=== PATIENT | male | born 1990 | race Caucasian/White ===

== ENCOUNTER 2016-07-26 17:56 | Emergency (ER) | payer OTHER ==
--- NOTE | 2016-07-26 19:09 | REP ---
Clinical: Trauma. Technique: AP and axial views of the left clavicle. Findings: A transverse mid clavicular shaft fracture is appreciated with mild inferior angulation to the distal fracture component. The acromioclavicular and glenohumeral joints appear intact. Overlying soft tissues appear grossly unremarkable. Impression: Mid clavicular shaft fracture. Signed by Skip De Leon MD 07/26/2016 07:01 P
[2016-07-26] MEDS ORDERED: NORCO 5/325MG TABLET (BULK) As Ordered ONE (20:20)
--- NOTE | 2016-07-26 20:27 | EDDOCDS ---
Nurse's Notes [facility] Name: Nicanor Teague Age: 25 yrs Sex: Male : 1990 Arrival Date: 07/26/2016 Time: 17:56 Bed Triage 3 Private MD: NDPHILLIP POE Diagnosis: Nondisplaced fracture of shaft of left clavicle Presentation: 07/26 18:02 Presenting complaint: Patient states: snowboarding and got cut off- fell landing on srm left shoulder- having clavicle pain. Presenting complaint: Patient states: did not hit head no LOCa. Adult Sepsis Screening: The patient does not have new or worsening altered mentation. Patient's respiratory rate is less than 22. Systolic blood pressure is greater than 100. Patient has a qSOFA score of 0- Negative Sepsis Screen. Suicide/Homicide risk assessment- the patient denies having any suicidal and/or homicidal ideations and does not present with any other emotional, behavioral or mental health complaints. Status: The patient is an active duty battery service technician. Transition of care: patient was not received from another setting of care. 18:02 Acuity: NOEL Level 4 [facility] 18:02 Method Of Arrival: Walkin/Carried/Asstd [facility] Triage Assessment: 18:05 General: Appears in no apparent distress, Behavior is appropriate for age, cooperative. srm Pain: Pain currently is 7 out of 10 on a pain scale. At worst was 10 out of 10 on a pain scale. 18:06 Pt Declines HIV testing. srm Historical: - Allergies: no known allergies; - Home Meds: 1. none - PMHx: Seasonal Allergies; - PSHx: bilatral wrist surgery; - Social history: Smoking status: Patient uses tobacco products, current every day smoker. No barriers to communication noted, The patient speaks fluent Indonesian, Speaks appropriately for age. - Family history: Not pertinent. - : The pt / caregiver states he / she is not on anticoagulants. Home medication list is obtained from the patient. - Exposure Risk Screening:: None identified. Screenin:23 Screening information is obtained from the patient. Fall risk: No risks identified. jmb Assistance ADL's: requires no assistance with activities of daily living. Abuse/DV Screen: The patient / caregiver reports he/she is: not in a situation that causes fear, pain or injury. Nutritional screening: No deficits noted. Advance Directives: Currently, there is no health care proxy. There is no active DNR order. There is no living will. There is no Power of Master Brewer. home support is adequate. Assessment: 20:23 General: Patient instructed on discharge instructions. Patient asked if there were any jmb questions regarding discharge, patient stated no. Patient signed discharge instructions. Patient discharged in stable condition. . Vital Signs: 17:57 BP 142 / 77; Pulse 83; Resp 18 S; Temp 99.0; Pulse Ox 99% on R/A; Weight 79.38 kg (R); dd6 Height 6 ft. 0 in. (182.88 cm) (R); 20:23 BP 138 / 70; Pulse 80; Resp 18; Temp 98.8(O); Pulse Ox 99% on R/A; Pain 0/10; jmb 17:57 Body Mass Index 23.73 (79.38 kg, 182.88 cm) dd6 Vitals: 17:57 Log In Time: July 26, 2016 at 17:55. dd6 ED Course: 17:57 Patient visited by Yrn Ramirez PCA. dd6 17:57 [facility], PHILLIP AVILA is Private Physician. dd6 17:57 Patient moved to Waiting dd6 17:58 Patient moved to Pre RCE dd6 18:04 Triage Initiated srm 19:28 Patient moved to Triage 3 jmb 20:01 Patient visited by Dilma Ross PCA. jb5 20:03 Kenney Chidlers PA is PHCP. mo1 20:03 Allen Mojica DO is Attending Physician. mo1 20:04 Clavicle Returned. EDMS 20:19 Patient visited by Kenney Childers PA. mo1 20:20 Gold Brownlee is Referral Physician. mo1 20:20 Albino Wiggins is Referral Physician. mo1 20:23 The patient / caregiver is instructed regarding the plan of care and ED course. jmb 20:23 No IV's were initiated during this patient's visit. No procedures done that require jmb assistance. Administered Medications: 20:21 Drug: HYDROcodone-acetaminophen 4 pack- 1 packets [hydrocodone 5 mg-acetaminophen 325 jmb mg tablet (1 tabs)] {Co-Signature: mcp (Carmel Banks RN).} Route: PO; Order Results: Radiology Order: Clavicle Test: Clavicle REASON FOR EXAMINATION: Trauma; Clinical: Trauma.; ; Technique: AP and axial views of the left clavicle.; ; Findings:; A transverse mid clavicular shaft fracture is appreciated with mild inferior; angulation to the distal fracture component. The acromioclavicular and; glenohumeral joints appear intact. Overlying soft tissues appear grossly; unremarkable.; ; Impression:; Mid clavicular shaft fracture.; ; ; Signed by; Skip De Leon MD 07/26/2016 07:01 P; Outcome: 20:20 Discharge ordered by Provider. mo1 20:23 Discharge Assessment: Patient awake, alert and oriented x 3. No cognitive and/or jmb functional deficits noted. Patient verbalized understanding of disposition instructions. Patient awake and alert. obeys commands, Oriented to person, place and time. Patient verbalized understanding of disposition instructions. Patient has no functional deficits. patient administered narcotics - no. The following High Risk Discharge criteria are identified: None. Discharged to home ambulatory. Condition: stable Condition: improved. Discharge instructions given to patient, Instructed on discharge instructions, follow up and referral plans. medication usage, Demonstrated understanding of instructions, medications, Pt was receptive of discharge instructions/ teaching. Prescriptions given X 1. No special radiology studies were completed. Property sent home with patient. 20:26 Patient left the ED. paul Signatures: Dispatcher [employer] EDMS Saray Reyes, RN RN Dilma Chavez, DYED YARN OPERATOR DYED YARN OPERATOR jb5 Yrn Ramirez, DYED YARN OPERATOR DYED YARN OPERATOR dd6 Kenney Childers PA PA mo1 Kee Gifford RN RN jmb Mary Peters RN mcp LYNDA
--- NOTE | 2016-07-26 20:27 | EDDOCDS ---
Physician Documentation [facility] Name: Nicanor Teague Age: 25 yrs Sex: Male : 1990 Arrival Date: 07/26/2016 Time: 17:56 Bed Triage 3 Private MD: PHILLIP AKINS Disposition: 07/26/16 20:20 Discharged to Home/Self Care. Impression: Nondisplaced fracture of shaft of left clavicle. - Condition is Stable. - Discharge Instructions: Clavicle Fracture, Arm Sling Use, [id number]. - Prescriptions for [place] 5- 325 mg Oral Tablet - take 1 tablet by ORAL route every 6 hours As needed MDD: 4 tabs; 20 tablet. - Medication Reconciliation, Local Pharmacy Hours form. - Follow up: Gold Brownlee; When: Call to arrange an appointment; Reason: Recheck today's complaints, Continuance of care. Follow up: Albino Wiggins; When: Call to arrange an appointment; Reason: Recheck today's complaints, Continuance of care. - Problem is new. - Symptoms are unchanged. Historical: - Allergies: no known allergies; - Home Meds: 1. none - PMHx: Seasonal Allergies; - PSHx: bilatral wrist surgery; - Social history: Smoking status: Patient uses tobacco products, current every day smoker. No barriers to communication noted, The patient speaks fluent Malian, Speaks appropriately for age. - Family history: Not pertinent. - : The pt / caregiver states he / she is not on anticoagulants. Home medication list is obtained from the patient. - Exposure Risk Screening:: None identified. Vital Signs: 07/26 17:57 BP 142 / 77; Pulse 83; Resp 18 S; Temp 99.0; Pulse Ox 99% on R/A; Weight 79.38 kg / 175 dd6 lbs (R); Height 6 ft. 0 in. (182.88 cm) (R); 20:23 BP 138 / 70; Pulse 80; Resp 18; Temp 98.8(O); Pulse Ox 99% on R/A; Pain 0/10; jmb 17:57 Body Mass Index 23.73 (79.38 kg, 182.88 cm) dd6 MDM: 18:08 Clavicle Ordered. EDMS 20:17 Sling ordered. mo1 20:17 HYDROcodone-acetaminophen 4 pack- 5 mg-325 mg 1 packets PO Per package directions; mo1 Dispense with patient. 1 po q4h prn for pain ordered. Administered Medications: 20:21 Drug: HYDROcodone-acetaminophen 4 pack- 1 packets [hydrocodone 5 mg-acetaminophen 325 jmb mg tablet (1 tabs)] {Co-Signature: mcp (Carmel Banks RN).} Route: PO; Signatures: Dispatcher [employer] Saray Awad, Kenney Dumont RN, PA PA mo1 Kee Gifford RN RN jmb Carmel Banks RN, mcp MTDD
--- NOTE | 2016-07-28 21:27 | EDDOCDS ---
Physician Documentation [facility] Name: Nicanor Teague Age: 25 yrs Sex: Male : 1990 Arrival Date: 07/26/2016 Time: 17:56 Bed Triage 3 Private MD: PHILLIP AKINS Disposition: 07/26/16 20:20 Discharged to Home/Self Care. Impression: Nondisplaced fracture of shaft of left clavicle. - Condition is Stable. - Discharge Instructions: Clavicle Fracture, Arm Sling Use, [id number]. - Prescriptions for [place] 5- 325 mg Oral Tablet - take 1 tablet by ORAL route every 6 hours As needed MDD: 4 tabs; 20 tablet. - Medication Reconciliation, Local Pharmacy Hours form. - Follow up: Gold Brownlee; When: Call to arrange an appointment; Reason: Recheck today's complaints, Continuance of care. Follow up: Albino Wiggins; When: Call to arrange an appointment; Reason: Recheck today's complaints, Continuance of care. - Problem is new. - Symptoms are unchanged. Historical: - Allergies: no known allergies; - Home Meds: 1. none - PMHx: Seasonal Allergies; - PSHx: bilatral wrist surgery; - Social history: Smoking status: Patient uses tobacco products, current every day smoker. No barriers to communication noted, The patient speaks fluent Belarusian, Speaks appropriately for age. - Family history: Not pertinent. - : The pt / caregiver states he / she is not on anticoagulants. Home medication list is obtained from the patient. - Exposure Risk Screening:: None identified. Vital Signs: 07/26 17:57 BP 142 / 77; Pulse 83; Resp 18 S; Temp 99.0; Pulse Ox 99% on R/A; Weight 79.38 kg / 175 dd6 lbs (R); Height 6 ft. 0 in. (182.88 cm) (R); 20:23 BP 138 / 70; Pulse 80; Resp 18; Temp 98.8(O); Pulse Ox 99% on R/A; Pain 0/10; jmb 17:57 Body Mass Index 23.73 (79.38 kg, 182.88 cm) dd6 MDM: 18:08 Clavicle Ordered. EDMS 20:17 Sling ordered. mo1 20:17 HYDROcodone-acetaminophen 4 pack- 5 mg-325 mg 1 packets PO Per package directions; mo1 Dispense with patient. 1 po q4h prn for pain ordered. 20:30 [facility] Payment Agreement was scanned into [employer] and attached to record. [facility] 20:30 Financial registration complete. [facility] 07/27 08:59 T-Sheet-- Draft Copy was scanned into [employer] and attached to record. gb Administered Medications: 07/26 20:21 Drug: HYDROcodone-acetaminophen 4 pack- 1 packets [hydrocodone 5 mg-acetaminophen 325 jmb mg tablet (1 tabs)] {Co-Signature: mcp (Carmel Banks RN).} Route: PO; Signatures: Dispatcher [employer] Saray Awad, Zari Harris RN, Ashok Reg gb Kenney Childers PA PA mo1 Kee Gifford RN RN jmb Beck, Gabriela gjb Mary Peters RN mcp The chart was reviewed and I authenticate all verbal orders and agree with the evaluation and treatment provided.Attachments: 20:30 [facility] Payment Agreement [facility] 07/27 08:59 T-Sheet-- Draft Copy gb Chart Complete MTDD
--- NOTE | 2016-07-28 21:27 | EDDOCDS ---
Nurse's Notes [facility] Name: Nicanor Teague Age: 25 yrs Sex: Male : 1990 Arrival Date: 07/26/2016 Time: 17:56 Bed Triage 3 Private MD: OKPHILLIP POE Diagnosis: Nondisplaced fracture of shaft of left clavicle Presentation: 07/26 18:02 Presenting complaint: Patient states: snowboarding and got cut off- fell landing on srm left shoulder- having clavicle pain. Presenting complaint: Patient states: did not hit head no LOCa. Adult Sepsis Screening: The patient does not have new or worsening altered mentation. Patient's respiratory rate is less than 22. Systolic blood pressure is greater than 100. Patient has a qSOFA score of 0- Negative Sepsis Screen. Suicide/Homicide risk assessment- the patient denies having any suicidal and/or homicidal ideations and does not present with any other emotional, behavioral or mental health complaints. Status: The patient is an active duty cloud services architect. Transition of care: patient was not received from another setting of care. 18:02 Acuity: NOEL Level 4 [facility] 18:02 Method Of Arrival: Walkin/Carried/Asstd [facility] Triage Assessment: 18:05 General: Appears in no apparent distress, Behavior is appropriate for age, cooperative. srm Pain: Pain currently is 7 out of 10 on a pain scale. At worst was 10 out of 10 on a pain scale. 18:06 Pt Declines HIV testing. srm Historical: - Allergies: no known allergies; - Home Meds: 1. none - PMHx: Seasonal Allergies; - PSHx: bilatral wrist surgery; - Social history: Smoking status: Patient uses tobacco products, current every day smoker. No barriers to communication noted, The patient speaks fluent Pashto, Speaks appropriately for age. - Family history: Not pertinent. - : The pt / caregiver states he / she is not on anticoagulants. Home medication list is obtained from the patient. - Exposure Risk Screening:: None identified. Screenin:23 Screening information is obtained from the patient. Fall risk: No risks identified. jmb Assistance ADL's: requires no assistance with activities of daily living. Abuse/DV Screen: The patient / caregiver reports he/she is: not in a situation that causes fear, pain or injury. Nutritional screening: No deficits noted. Advance Directives: Currently, there is no health care proxy. There is no active DNR order. There is no living will. There is no Power of Compactor Driver. home support is adequate. Assessment: 20:23 General: Patient instructed on discharge instructions. Patient asked if there were any jmb questions regarding discharge, patient stated no. Patient signed discharge instructions. Patient discharged in stable condition. . Vital Signs: 17:57 BP 142 / 77; Pulse 83; Resp 18 S; Temp 99.0; Pulse Ox 99% on R/A; Weight 79.38 kg (R); dd6 Height 6 ft. 0 in. (182.88 cm) (R); 20:23 BP 138 / 70; Pulse 80; Resp 18; Temp 98.8(O); Pulse Ox 99% on R/A; Pain 0/10; jmb 17:57 Body Mass Index 23.73 (79.38 kg, 182.88 cm) dd6 Vitals: 17:57 Log In Time: July 26, 2016 at 17:55. dd6 ED Course: 17:57 Patient visited by Yrn Ramirez PCA. dd6 17:57 [facility], PHILLIP AVILA is Private Physician. dd6 17:57 Patient moved to Waiting dd6 17:58 Patient moved to Pre RCE dd6 18:04 Triage Initiated srm 19:28 Patient moved to Triage 3 jmb 20:01 Patient visited by Dilma Ross PCA. jb5 20:03 Kenney Childers PA is PHCP. mo1 20:03 Allen Mojica DO is Attending Physician. mo1 20:04 Clavicle Returned. EDMS 20:19 Patient visited by Kenney Childers PA. mo1 20:20 Gold Brownlee is Referral Physician. mo1 20:20 Albino Wiggins is Referral Physician. mo1 20:23 The patient / caregiver is instructed regarding the plan of care and ED course. jmb 20:23 No IV's were initiated during this patient's visit. No procedures done that require jmb assistance. 20:29 Patient name changed from Christopher\S\\S\Teague\S\ to Christopher\S\Derrick\S\Teague. EDMS 20:30 [facility] Payment Agreement was scanned into [employer] and attached to record. gjb 01/14 08:59 T-Sheet-- Draft Copy was scanned into [employer] and attached to record. gb Administered Medications: 07/26 20:21 Drug: HYDROcodone-acetaminophen 4 pack- 1 packets [hydrocodone 5 mg-acetaminophen 325 jmb mg tablet (1 tabs)] {Co-Signature: carlos manuel (Carmel Banks RN).} Route: PO; Order Results: Radiology Order: Clavicle Test: Clavicle REASON FOR EXAMINATION: Trauma; Clinical: Trauma.; ; Technique: AP and axial views of the left clavicle.; ; Findings:; A transverse mid clavicular shaft fracture is appreciated with mild inferior; angulation to the distal fracture component. The acromioclavicular and; glenohumeral joints appear intact. Overlying soft tissues appear grossly; unremarkable.; ; Impression:; Mid clavicular shaft fracture.; ; ; Signed by; Skip De Leon MD 07/26/2016 07:01 P; Outcome: 20:20 Discharge ordered by Provider. mo1 20:23 Discharge Assessment: Patient awake, alert and oriented x 3. No cognitive and/or jmb functional deficits noted. Patient verbalized understanding of disposition instructions. Patient awake and alert. obeys commands, Oriented to person, place and time. Patient verbalized understanding of disposition instructions. Patient has no functional deficits. patient administered narcotics - no. The following High Risk Discharge criteria are identified: None. Discharged to home ambulatory. Condition: stable Condition: improved. Discharge instructions given to patient, Instructed on discharge instructions, follow up and referral plans. medication usage, Demonstrated understanding of instructions, medications, Pt was receptive of discharge instructions/ teaching. Prescriptions given X 1. No special radiology studies were completed. Property sent home with patient. 20:26 Patient left the ED. jmb Signatures: Dispatcher [employer] EDMS Saray Reyes, RN RN Zari Villaseñor, Reg Reg gb Dilma Ross, RUBBLE PLACER RUBBLE PLACER jb5 Yrn Ramirez, RUBBLE PLACER RUBBLE PLACER dd6 Kenney Childers PA PA mo1 Kee Gifford RN RN jmb Beck, Gabriela gjb Mary Peters RN mcp Chart Complete MTDD
--- NOTE | 2016-07-28 21:27 | EDDOCDS ---
Physician Documentation [facility] Name: Nicanor Teague Age: 25 yrs Sex: Male : 1990 Arrival Date: 07/26/2016 Time: 17:56 Bed Triage 3 Private MD: PHILLIP AKINS Disposition: 07/26/16 20:20 Discharged to Home/Self Care. Impression: Nondisplaced fracture of shaft of left clavicle. - Condition is Stable. - Discharge Instructions: Clavicle Fracture, Arm Sling Use, [id number]. - Prescriptions for [place] 5- 325 mg Oral Tablet - take 1 tablet by ORAL route every 6 hours As needed MDD: 4 tabs; 20 tablet. - Medication Reconciliation, Local Pharmacy Hours form. - Follow up: Gold Brownlee; When: Call to arrange an appointment; Reason: Recheck today's complaints, Continuance of care. Follow up: Albino Wiggins; When: Call to arrange an appointment; Reason: Recheck today's complaints, Continuance of care. - Problem is new. - Symptoms are unchanged. Historical: - Allergies: no known allergies; - Home Meds: 1. none - PMHx: Seasonal Allergies; - PSHx: bilatral wrist surgery; - Social history: Smoking status: Patient uses tobacco products, current every day smoker. No barriers to communication noted, The patient speaks fluent Palauan, Speaks appropriately for age. - Family history: Not pertinent. - : The pt / caregiver states he / she is not on anticoagulants. Home medication list is obtained from the patient. - Exposure Risk Screening:: None identified. Vital Signs: 07/26 17:57 BP 142 / 77; Pulse 83; Resp 18 S; Temp 99.0; Pulse Ox 99% on R/A; Weight 79.38 kg / 175 dd6 lbs (R); Height 6 ft. 0 in. (182.88 cm) (R); 20:23 BP 138 / 70; Pulse 80; Resp 18; Temp 98.8(O); Pulse Ox 99% on R/A; Pain 0/10; jmb 17:57 Body Mass Index 23.73 (79.38 kg, 182.88 cm) dd6 MDM: 18:08 Clavicle Ordered. EDMS 20:17 Sling ordered. mo1 20:17 HYDROcodone-acetaminophen 4 pack- 5 mg-325 mg 1 packets PO Per package directions; mo1 Dispense with patient. 1 po q4h prn for pain ordered. 20:30 [facility] Payment Agreement was scanned into [employer] and attached to record. [facility] 20:30 Financial registration complete. [facility] 07/27 08:59 T-Sheet-- Draft Copy was scanned into [employer] and attached to record. gb Administered Medications: 07/26 20:21 Drug: HYDROcodone-acetaminophen 4 pack- 1 packets [hydrocodone 5 mg-acetaminophen 325 jmb mg tablet (1 tabs)] {Co-Signature: mcp (Carmel Banks RN).} Route: PO; Signatures: Dispatcher [employer] Saray Awad, Zari Harris RN, Ashok Reg gb Kenney Childers PA PA mo1 Kee Gifford RN RN jmb Beck, Gabriela gjb Mary Peters RN mcp The chart was reviewed and I authenticate all verbal orders and agree with the evaluation and treatment provided.Attachments: 20:30 [facility] Payment Agreement [facility] 07/27 08:59 T-Sheet-- Draft Copy gb Chart Complete MTDD
== END 2016-07-26 20:26 | disposition home or self-care (01) ==
LOC: M ED 17:56
DX: S42.025A Nondisplaced fracture of shaft of left clavicle, initial encounter for closed fracture (principal); V00.311A Fall from snowboard, initial encounter; Y92.39 Other specified sports and athletic area as the place of occurrence of the external cause; Y93.23 Activity, snow (alpine) (downhill) skiing, snowboarding, sledding, tobogganing and snow tubing; Y99.8 Other external cause status; J30.9 Allergic rhinitis, unspecified; F17.210 Nicotine dependence, cigarettes, uncomplicated

== ENCOUNTER 2017-07-20 22:56 | Emergency (ER) | payer OTHER ==
[2017-07-20 23:51] LABS: BASO # 0.1 10^3/uL (0.0-0.2); BASO % 0.6 % (0.0-1.0); EOS # 0.2 10^3/uL (0.0-0.50); EOS % 2.8 % (0.0-3.0); HEMATOCRIT 41.2 % (42.0-52.0); HEMOGLOBIN 14.1 g/dl (14.0-18.0); IMMATURE GRANULOCYTE % 0.2 % (0-0); LYMPH # 3.7 10^3/uL (1.5-6.5); LYMPH % 43.6 % (24.0-44.0); MEAN CORPUSCULAR HEMOGLOBIN 30.5 pg (27.0-33.0); MEAN CORPUSCULAR HGB CONC 34.2 g/dl (32.0-36.5); MEAN CORPUSCULAR VOLUME 89.2 fl (80.0-96.0); MONO # 0.6 10^3/uL (0.0-0.8); NEUTROPHILS # 3.9 10^3/uL (1.8-7.7); NEUTROPHILS % 45.8 % (36.0-66.0); PLATELET COUNT, AUTOMATED 184 10^3/uL (150-450); RED BLOOD COUNT 4.62 10^6/uL (4.30-6.10); RED CELL DISTRIBUTION WIDTH 12.3 % (11.5-14.5); WHITE BLOOD COUNT 8.5 10^3/uL (4.0-10.0)
[2017-07-21 00:10] LABS: ALBUMIN 3.9 GM/DL (3.2-5.2); ALBUMIN/GLOBULIN RATIO 1.26 (1.00-1.93); ALKALINE PHOSPHATASE 49 U/L (45-117); ALT/SGPT 21 U/L (12-78); ANION GAP 5 MEQ/L (8-16); AST/SGOT 14 U/L (7-37); BILIRUBIN,DIRECT 0.1 MG/DL (0.0-0.2); BILIRUBIN,TOTAL 0.5 MG/DL (0.2-1.0); BLOOD UREA NITROGEN 15 MG/DL (7-18); CALCIUM LEVEL 8.5 MG/DL (8.5-10.1); CARBON DIOXIDE LEVEL 29 MEQ/L (21-32); CHLORIDE LEVEL 108 MEQ/L (98-107); CREATININE FOR GFR 1.05 MG/DL (0.70-1.30); GLOMERULAR FILTRATION RATE > 60.0 (>60); GLUCOSE, FASTING 90 MG/DL (70-105); LIPASE 119 U/L (73-393); SODIUM LEVEL 142 MEQ/L (136-145)
[2017-07-21 01:26] LABS: BASO # 0.1 10^3/uL (0.0-0.2); BASO % 0.6 % (0.0-1.0); EOS # 0.3 10^3/uL (0.0-0.50); EOS % 3.2 % (0.0-3.0); HEMATOCRIT 40.4 % (42.0-52.0); HEMOGLOBIN 13.7 g/dl (14.0-18.0); IMMATURE GRANULOCYTE % 0.2 % (0-0); LYMPH # 3.2 10^3/uL (1.5-6.5); LYMPH % 37.5 % (24.0-44.0); MEAN CORPUSCULAR HEMOGLOBIN 30.2 pg (27.0-33.0); MEAN CORPUSCULAR HGB CONC 33.9 g/dl (32.0-36.5); MEAN CORPUSCULAR VOLUME 89.2 fl (80.0-96.0); MONO # 0.7 10^3/uL (0.0-0.8); MONO % 7.9 % (0.0-5.0); NEUTROPHILS # 4.4 10^3/uL (1.8-7.7); NEUTROPHILS % 50.6 % (36.0-66.0); PLATELET COUNT, AUTOMATED 174 10^3/uL (150-450); RED BLOOD COUNT 4.53 10^6/uL (4.30-6.10); RED CELL DISTRIBUTION WIDTH 12.2 % (11.5-14.5); WHITE BLOOD COUNT 8.6 10^3/uL (4.0-10.0)
== END 2017-07-21 03:58 | disposition home or self-care (01) ==
LOC: M ED 07-21 03:58
DX: K64.4 Residual hemorrhoidal skin tags (principal); K62.5 Hemorrhage of anus and rectum; F17.200 Nicotine dependence, unspecified, uncomplicated
CPT/HCPCS: 83690